=== PATIENT | female | born 1965 | race Caucasian/White ===

== ENCOUNTER → 2019-04-13 | Outpatient (CLI) | payer MEDICARE ==
[~2019-04-13] MED LIST: CONTRAST GIVEN. MC PRN; IOHEXOL 240 MG/ML 50ML VIAL. PO ONE; IOHEXOL 300 MG/ML 100ML VIAL. IV ONE
--- NOTE | 2019-04-13 18:06 | RAD ---
CT study of the abdomen and pelvis with contrast Clinical indications: Cutaneous abscess of the abdominal wall COMPARISON: None available. TECHNIQUE: After IV infusion of 75 cc of Omnipaque 300, helical CT scanning of the abdomen and pelvis was performed. GI contrast was administered per mouth. PQRS compliance Statement One or more of the following individualized dose reduction techniques were utilized for this study: 1. Automated exposure control 2. Adjustment of the mA and/or kV according to patient size 3. Use of iterative reconstruction technique FINDINGS: The liver and spleen and pancreas are unremarkable. The gallbladder is surgically absent. No extra hepatic biliary ductal dilatation is seen. No adrenal mass is evident. Urinary bladder is not abnormally distended. No renal mass is seen. There is mild hydronephrosis and hydroureter. No urinary tract stone is evident. No focal aneurysmal dilatation of the abdominal aorta is seen. No enlarged abdominal or pelvic lymphadenopathy is evident. 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 Adjacent to the right-sided colostomy, in irregular fluid collection is seen with small bubbles of air. This measures 9.5 cm in greatest vertical dimension and 7.7 cm in greatest transverse dimension and 4.7 cm in greatest AP dimension. There is a linear tract of edema extending from the fluid collection to the skin surface. No obstructive bowel pattern is evident. No extravasation of contrast is evident. No free intraperitoneal air is seen within the upper abdomen. Surgical clips are seen within the pelvis. There are small bubbles of air within the dependent portion of the pelvis around what appears to be the vaginal cuff. Small amount of free fluid is seen within the dependent portion of the pelvis. No lung base consolidation is evident. No lytic process is seen. IMPRESSION: Anterior abdominal wall fluid collection containing bubbles of air which may represent an abscess. This is located on the right side of the anterior abdominal wall adjacent to and medial to the right-sided colostomy. No obstructive bowel pattern is evident. There are bubbles of air with surgical clips within the pelvis. It extends around the vaginal cuff. There is a small amount of dependent free fluid in this area. Mild bilateral hydronephrosis and hydroureter without definite stone. Urinary bladder is not abnormally distended. Electronically signed by: Luis E Carty MD (04/13/2019 6:03 PM) [place] [id number]
== END | disposition home or self-care (01) ==
LOC: CT 07:59
PROVIDERS: ATTEND Internal Medicine Infectious Disease
DX: N13.4 Hydroureter (principal); N13.30 Unspecified hydronephrosis; L02.211 Cutaneous abscess of abdominal wall; I10 Essential (primary) hypertension
CPT/HCPCS: 74177; Q9966; Q9967